=== PATIENT | male | born 1945 | race Caucasian/White ===

== ENCOUNTER → 2016-06-14 | Outpatient (CLI) | payer MEDICARE ==
--- NOTE | 2016-06-14 08:55 | MR ---
EXAMINATION TYPE: MR knee LT wo con DATE OF EXAM: 06/14/2016 8:39 AM COMPARISON: Outside left knee x-ray May 17, 2016. HISTORY: Left knee pain per order. Inner knee pain for 6 months per patient. TECHNIQUE: Multiplanar, multisequence images of the knee is performed without IV contrast. FINDINGS: MEDIAL MENISCUS: There is linear signal posterior horn of medial meniscus on sagittal image 26, does not distinctly extend to articular surface. Anterior horn of medial meniscus is intact. LATERAL MENISCUS: There is frayed appearance of the anterior horn of lateral meniscus with linear and more globular increased signal extends to inferior articular surface anteriorly seen best on sagitta l image 8. Increased linear signal extends through the body into the posterior horn without definitiv e extension to articular surface at this level. CRUCIATE LIGAMENTS: The anterior and posterior cruciate ligaments are intact and unremarkable. COLLATERAL LIGAMENTS: The medial collateral ligament and lateral collateral ligament complex are inta ct and unremarkable. EXTENSOR MECHANISM: Visualized quadriceps and patellar tendons are intact. Spurring from the anterior superior patella is noted. EFFUSION: There is small to moderate size suprapatellar joint effusion. POPLITEAL CYST: No popliteal/collier cyst. TRICOMPARTMENT SPACES: There is moderate joint space loss patellofemoral compartment. Mild to moderat e joint space loss with mild spurring is seen medial and lateral tibiofemoral compartments. CARTILAGE: There is fissuring and cartilaginous loss posterior patellar pole consistent with chondrom alacia patella. Near full-thickness loss is seen best on sagittal image 18. No full-thickness defect however is present. Articular cartilage medial and lateral tibiofemoral compartments is fairly well-m aintained. BONE MARROW SIGNAL: No focal abnormal marrow signal is appreciated. OTHER: No additional significant abnormality is appreciated. IMPRESSION: 1. Intrasubstance tear involving posterior horn and body of lateral meniscus with extension to full-t hickness tear involving the anterior horn of lateral meniscus noted. 2. 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 Finding of chondrocalcinosis noted on plain film. One must consider combination of pseud ogout and osteoarthritis. 3. Small to moderate size suprapatellar joint effusion.
== END | disposition home or self-care (01) ==
LOC: RADMRIMAIN 07:56
PROVIDERS: ATTEND Orthopaedic Surgery
DX: S83.272A Complex tear of lateral meniscus, current injury, left knee, initial encounter (principal); M17.12 Unilateral primary osteoarthritis, left knee